=== PATIENT | female | born 1975 | race Caucasian/White ===

== ENCOUNTER 2019-11-15 04:15 | Observation (INO) | payer OTHER, SELFPAY ==
[2019-11-15] MEDS ORDERED: Ketorolac Tromethamine 30 MG/ML VIAL ONE ×2 (05:02→16:57)
[2019-11-15] MEDS ORDERED: Ondansetron PF 4 MG/2 ML Vial ONE (05:02)
[2019-11-15 05:15] LABS: #Basophils 0.1 thou/uL (0.0-0.2); #Eosinphils 0.1 thou/uL (0.0-0.7); #Lymphocytes 2.9 thou/uL (1.20-3.40); #Monocytes 0.7 thou/uL (0.11-0.59); #Neutrophils 5.1 thou/uL (1.40-6.50); %Basophils 1.4 % (0.0-1.0); %Lymphocytes 32.3 % (21.0-51.0); %Neutrophils 57.3 % (42.0-75.0); Hemoglobin 13.6 g/dL (12.0-16.0); Mean Corpuscular HGB CONC 31.7 g/dL (32.0-36.0); Mean Corpuscular Hemoglobin 28.5 pg (27.0-31.0); Mean Corpuscular Volume 90.1 fL (78.0-98.0); Mean Platelet Volume 8.7 fL (7.4-10.4); Platelet Count 258 thou/uL (130-400); RBC Distribution Width 13.6 % (11.5-14.5); Red Blood Cell (RBC) Count 4.77 mill/uL (4.20-5.40); White Blood Cell (WBC) Count 8.9 thou/uL (4.8-10.8)
[2019-11-15 05:36] LABS: ALT (SGPT) 9 U/L (8-55); AST (SGOT) 11 U/L (5-34); Albumin 3.7 g/dL (3.5-5.0); Alkaline Phosphatase 78 U/L (40-110); Anion Gap 11 mmol/L (10-20); BUN (Urea Nitrogen) 14 mg/dL (7.0-18.7); Bilirubin, Total 0.2 mg/dL (0.2-1.2); Calc. Creatinine Clearance 0 mL/min (70-130); Calcium 8.9 mg/dL (7.8-10.44); Carbon Dioxide 25 mmol/L (22-29); Chloride 104 mmol/L (98-107); Estimated GFR-MDRD 63; Glucose 80 mg/dL (70-105); Lipase 25 U/L (8-78); Potassium 3.6 mmol/L (3.5-5.1); Protein, Total 6.7 g/dL (6.0-8.3); Sodium 136 mmol/L (136-145)
[2019-11-15 05:59] LABS: Bilirubin Negative (Negative); Blood, Urine 2+ (Negative); Clarity Clear (Clear); Glucose, Urine (Dipstick) Normal (Negative); Ketone, Urine Negative (Negative); Leukocyte Negative Leu/uL (Negative); Nitrite Negative (Negative); Protein, Urine (Dipstick) 30 mg/dL (Neg-Trace); Specific Gravity, Urine 1.011 (1.002-1.036); Squamous Epithelial 0-3 HPF (0-3); Urobilinogen Normal mg/dL (Less than 2); WBC/HPF 0-3 HPF (0-3); pH, Urine 7.5 (5.0-9.0)
[2019-11-15 06:07] LABS: Bacteria/HPF 1+ HPF (None Seen)
[2019-11-15] MEDS ORDERED: Piperacillin/Tazobactam 4.5 GM VIAL ONE (06:39)
--- NOTE | 2019-11-15 07:36 | ULT ---
US Gallbladder RUQ: 11/15/2019 4:49 AM CLINICAL HISTORY: Epigastric pain. STUDY: Limited right upper quadrant ultrasound of abdomen. COMPARISON: None. FINDINGS: Liver: Size: Normal. Echogenicity: Normal. Contour: Smooth. Mass: None. Bile ducts: No intrahepatic or extrahepatic biliary dilatation. Common bile duct measures 5 mm. Gallbladder: Shadowing gallstones without gallbladder wall thickening Pancreas: Head, body, and tail appear normal. Right kidney: No pelvicalyceal dilatation. Right kidney measuring 11.4 cm in length. IMPRESSION: Cholelithiasis
--- NOTE | 2019-11-15 07:38 | RAD ---
EXAM: Single view of the chest HISTORY: Chest pain COMPARISON: 02/11/2012 FINDINGS: Single view of the chest shows a normal sized cardiomediastinal silhouette. There is no derrick dence of consolidation, mass, or pleural effusion. The bones are unremarkable IMPRESSION: No evidence of acute cardiopulmonary disease
[2019-11-15] MEDS ORDERED: Ondansetron PF 4 MG/2 ML Vial IVP PRN (08:46)
[2019-11-15] MEDS ORDERED: Lorazepam 2 MG/ML VIAL SLOW IVP PRN (08:46)
[2019-11-15] MEDS ORDERED: hydrALAZINE 20 MG/ML VIAL SLOW IVP PRN (08:46)
[2019-11-15] MEDS ORDERED: Morphine 4 MG/ML VIAL SLOW IVP PRN (08:46)
[2019-11-15] MEDS ORDERED: Morphine 2 MG/ML VIAL SLOW IVP PRN (08:46)
[2019-11-15] MEDS ORDERED: Ondansetron ODT 8 MG TAB PO PRN (08:49)
[2019-11-15] MEDS ORDERED: Ibuprofen 600 MG TAB PO PRN (08:49)
[2019-11-15] MEDS ORDERED: Ketorolac Tromethamine 30 MG/ML VIAL IVP PRN (08:49)
[2019-11-15] MEDS ORDERED: Acetaminophen 500 MG TAB PO PRN (08:49)
[2019-11-15] MEDS ORDERED: Ondansetron ODT 8 MG TAB SL PRN (08:49)
[2019-11-15] MEDS ORDERED: traMADol HCl 50 MG TAB PO PRN ×2 (08:49)
[2019-11-15] MEDS ORDERED: Sodium Chloride 0.9% 1,000 ML IV SCH (09:00)
[2019-11-15] MEDS ORDERED: Rocuronium Bromide 10 MG/ML (10ML VIAL) ONE (09:46)
[2019-11-15] MEDS ORDERED: Lidocaine 1% PF 5 ML VIAL ONE (09:46)
[2019-11-15] MEDS ORDERED: PROPOFOL 200 MG/20 ML VIAL ONE (09:46)
[2019-11-15 10:24] VITALS: BMI 28.3
[2019-11-15] MEDS ORDERED: Scopolamine 1.5 mg/72 hour Patch TD SCH (11:00)
--- NOTE | 2019-11-15 12:26 | HP ---
HISTORY OF PRESENT ILLNESS: A 44-year-old female with several month history of biliary colic, presents with intolerable pain to the emergency room. Ultrasound verified gallstones. Normal bile duct caliber. Liver function tests are normal. She is hospitalized. Awaiting COVID test with plans for laparoscopic cholecystectomy today and discharge home afterwards. ALLERGIES: ERYTHROMYCINS. SOCIAL HISTORY: Tobacco 1-2 packs per day. Alcohol socially. MEDICATIONS: None routinely. PAST SURGICAL HISTORY: Bilateral tubal ligation. PAST MEDICAL HISTORY: Noncontributory. SOCIAL HISTORY: The patient is going through divorce. She is single. She lives in [place]. REVIEW OF SYSTEMS: Noncontributory. FAMILY HISTORY: Noncontributory. PHYSICAL EXAMINATION: VITAL SIGNS: Height 5 foot 5 inches, 169 pounds, 28 BMI 97.5 degrees, 71, 115/78. HEAD, EARS, EYES, NOSE AND THROAT: Unremarkable. Poor dentition. LUNGS: Clear to auscultation. CARDIAC: Regular rate and rhythm no murmur or gallop. ABDOMEN: Soft. Tenderness in right upper quadrant with guarding in the right upper quadrant. Positive Melchor sign. EXTREMITIES: No ankle edema. SKIN: No jaundice. No scleral icterus. LABORATORIES: As noted. ASSESSMENT AND PLAN: Acute chronic cholecystitis, cholelithiasis. Await COVID test. PLAN: Laparoscopic video cholecystectomy. Risks of infection, bleeding, visceral, biliary injury, open procedure discussed. Questions answered. Plan laparoscopic cholecystectomy today pending COVID results. Job ID: [id number]
[2019-11-15 14:23] LABS: SARS-CoV-2 MS2 Positive; SARS-CoV-2 N Gene Negative; SARS-CoV-2 S Gene Negative; SARS-CoV-2 by NAA Not Detected (NotDetected); SARS-CoV-2 orf1ab Negative
[2019-11-15] MEDS ORDERED: Famotidine/PF 20 mg/2ml Vial ONE (14:40)
[2019-11-15] MEDS ORDERED: Fentanyl 100 MCG/2 ML VIAL ONE ×4 (14:40→16:45)
[2019-11-15] MEDS ORDERED: Lidocaine 1% w/Epinephrine 1:100K 20 ML VIAL ONE (14:42)
[2019-11-15] MEDS ORDERED: Bupivacaine PF 0.5% 30 ML VIAL ONE (14:42)
[2019-11-15] MEDS ORDERED: SUGAMMADEX SODIUM 200 MG/2 ML VIAL ONE (15:09)
[2019-11-15] MEDS ORDERED: Promethazine HCl 25 MG/ML VIAL SLOW IVP PRN (15:21)
[2019-11-15] MEDS ORDERED: Meperidine HCl/PF 25 MG/ML VIAL SLOW IVP PRN (15:21)
[2019-11-15] MEDS ORDERED: Promethazine HCl 25 MG/ML VIAL IM PRN (15:21)
[2019-11-15] MEDS ORDERED: Ondansetron HCl/PF 4 MG/2 ML Vial IVP PRN (15:21)
[2019-11-15] MEDS ORDERED: Levofloxacin 500 mg/D5W 100 ml Premix Bag ONE (15:44)
--- NOTE | 2019-11-15 16:47 | OP ---
DATE OF PROCEDURE: 11/15/2019 PREOPERATIVE DIAGNOSES: 1. Chronic cholecystitis. 2. Cholelithiasis. POSTOPERATIVE DIAGNOSES: 1. Chronic cholecystitis. 2. Cholelithiasis. PROCEDURE PERFORMED: Laparoscopic video cholecystectomy. ANESTHESIA: General, local with 0.5% Marcaine with epinephrine 30 mL. DESCRIPTION OF PROCEDURE: The patient was taken to the operating room where under general anesthesia, abdomen was prepared with ChloraPrep and draped in routine fashion. Local anesthetic was infiltrated in the skin and subcutaneous tissue about each port site. Infraumbilical incision was made. Pneumoperitoneum to 15 mmHg was obtained with a Veress needle, replacing with a 5 port, video laparoscope inserted. Right subxiphoid incision was made and 11 port placed. Right subcostal incision made in midclavicular entrance line and the 5 port was placed. Liver appeared to be normal. Gallbladder acutely inflamed and edematous. Fundus grasped and reflected cephalad. The infundibulum was grasped and reflected laterally. Cystic artery and duct dissected free. Critical view obtained. Cystic artery and duct divided. Gallbladder dissected free using hemostasis. Cystic artery and duct had good hemostasis and closure now with the clips. Gallstones and gallbladder removed, submitted to pathology. Good hemostasis ensured with cautery. Irrigant and pneumoperitoneum evacuated. All instruments were removed. All skin incisions were approximated with interrupted subdermal 4-0 Monocryl and [place] glue applied. Job ID: [id number]
[2019-11-15] MEDS ORDERED: HYDROmorphone 0.5 MG/0.5 ML SYRINGE ONE (17:01)
[2019-11-15] MEDS ORDERED: HYDROmorphone 0.5 MG/0.5 ML SYRINGE SLOW IVP SCH (17:30)
[2019-11-15] MEDS ORDERED: Enoxaparin Sodium 40 MG/0.4 ML SYRINGE SC SCH (21:00)
[2019-11-15 21:08] VITALS: BP 117/69; TEMP 98.2
--- NOTE | 2019-11-16 04:06 | DIS ---
DATE OF ADMISSION: 11/15/2019 DATE OF DISCHARGE: 11/15/2019 DISCHARGE DIAGNOSES: Acute cholecystitis, cholelithiasis. COVID negative screening test. SURGEON: Dillon Alarcon MD PROCEDURE PERFORMED: Laparoscopic video cholecystectomy. HISTORY: A 44-year-old female presented with a several month history of biliary colic, presenting with severe pain and seen in the emergency room. Ultrasound revealed gallstones, normal caliber bile duct, normal liver function tests. She was hospitalized, given intravenous fluids and antibiotics. Once her COVID screen was negative, she was taken for laparoscopic cholecystectomy after which she was discharged home. Follow up in my office in 2 to 3 weeks. Diet and activity as tolerated. I sent her home with Ultram p.r.n. pain. To take Tylenol, Motrin, if able. Job ID: [id number]
== END 2019-11-15 21:25 | disposition home or self-care (01) ==
LOC: ERS 04:15 → SJJU 06:42
PROVIDERS: ADMIT Specialist; ATTEND Specialist
PROC: 0FT44ZZ Resection of Gallbladder, Percutaneous Endoscopic Approach (ICD-10-PCS; principal; 2019-11-15)
DX: K80.12 Calculus of gallbladder with acute and chronic cholecystitis without obstruction (principal); F17.210 Nicotine dependence, cigarettes, uncomplicated; Z88.1 Allergy status to other antibiotic agents; Z88.5 Allergy status to narcotic agent; Z20.828 Contact with and (suspected) exposure to other viral communicable diseases
CPT/HCPCS: 71045; 76705; 80053; 81003; 81015; 83605; 83690; 85025; 87040; 87149; 87635; 88304; 93005; 96361; 96365; 96372; 96375; 96376; G0378; J0690; J1170; J1650; J1885; J1956; J2060; J2270; J2405; J2543; J2704; J3010; S0020; S0028; U0003